=== PATIENT | male | born 1980 | race Caucasian/White ===

== ENCOUNTER 2020-03-08 17:59 | Inpatient (IN) | payer OTHER ==
[~2020-03-08] VITALS: Ht 177.8 cm; Wt 191.6 kg
[2020-03-08 18:29] LABS: PCO2 Arterial 33 mmHg (35-45); PO2 Arterial 201 mmHg (80-100); pH Blood Arterial 7.14 (7.35-7.45)
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
[2020-03-08 21:17] LABS: Hematocrit 42.5 % (37.0-53.0); Hemoglobin 12.5 g/dL (13.5-17.5); Mean Corpuscular HGB 29.6 pg (26.0-34.0); Mean Corpuscular HGB Conc 29.4 g/dL (31.5-36.5); Mean Corpuscular Volume 101 fL (80-100); NRBC ABSOLUTE 0.12 K/mm3 (0.00-0.02); NRBC Auto 0.8 /100 WBC (0.0-0.2); RDW Coefficient Variation 16.4 % (11.7-14.2); RDW Standard Deviation 61.1 fL (35.1-46.3); Red Blood Cell Count 4.22 M/mm3 (4.30-5.90); White Blood Cell Count 15.48 K/mm3 (4.00-11.30)
[2020-03-08 21:28] LABS: Magnesium, Blood 2.9 mg/dL (1.6-2.4)
[2020-03-08 21:29] LABS: International Normalized Ratio 1.49; Prothrombin Time Results 15.6 Sec (9.7-11.5)
[2020-03-08 21:31] LABS: Alanine Aminotransfer (ALT/SGP 35 U/L (12-78); Albumin, Blood 2.5 g/dL (3.4-5.0); Albumin/Globulin Ratio 0.8 (0.8-1.8); Alk Phos 80 U/L (50-136); Anion Gap 20 mmol/L (6-16); Aspartate Aminotrans (AST/SGOT 47 U/L (12-37); Bilirubin, Total 0.7 mg/dL (0.1-1.0); Blood Urea Nitrogen 9 mg/dL (8-24); Bun/Creatinine Ratio 8.7 (12.0-20.0); CO2, Blood 16 mmol/L (21-32); Calcium, Blood 8.7 mg/dL (8.5-10.1); Chloride, Blood 113 mmol/L (98-108); Creatinine, Blood 1.04 mg/dL (0.60-1.20); Glomerular Filtration Rate >60 (60-); Sodium, Blood 149 mmol/L (136-145); Total Protein, Blood 5.5 g/dL (6.4-8.2)
[2020-03-08 21:32] LABS: Glucose, Blood 45 mg/dL (70-99)
[2020-03-08 21:52] LABS: BAND PERCENT MAN 8 % (0-8); BASOPHILS PERCENT MAN 0 % (0-2); EOSINOPHILS ABSOLUTE MAN 0.15 K/mm3 (0.00-0.68); EOSINOPHILS PERCENT MAN 1 % (0-6); LYMPHOCYTES ABSOLUTE MAN 3.87 K/mm3 (0.84-5.20); LYMPHOCYTES PERCENT MAN 25 % (21-46); METAMYELOCYTE ABSOLUTE MAN 0.46 K/mm3 (0.00-0.00); METAMYELOCYTE PERCENT MAN 3 % (0-0); MONOCYTES ABSOLUTE MAN 0.61 K/mm3 (0.16-1.47); MONOCYTES PERCENT MAN 4 % (4-13); MYELOCYTE ABSOLUTE MAN 0.92 K/mm3 (0.00-0.00); MYELOCYTE PERCENT MAN 6 % (0-0); NEUTROPHILS ABSOLUTE MAN 9.44 K/mm3 (1.96-9.15); SEG NEUTROPHILS PERCENT MAN 53 % (41-73); TOTAL CELLS COUNTED 100
[2020-03-08 21:56] LABS: Mean Platelet Volume 10.7 fL (9.1-12.4); Platelet Count 56 K/mm3 (150-400)
[2020-03-08 22:13] LABS: PCO2 Venous 79.6 mmHg (38-42); pH Blood Venous 6.81 (7.34-7.37)
[2020-03-08 22:14] LABS: Base Excess Venous -21.5 mmol/L; PO2 Venous 22.7 mmHg (38-42)
[2020-03-08 22:17] LABS: Influenza A, PCR Negative (NEGATIVE); Influenza B, PCR Negative (NEGATIVE); Resp Syncytial Virus, PCR Negative (NEGATIVE); SARS-Cov-2 (COVID-19) PCR, MMC Negative (NEGATIVE)
[2020-03-08 23:37] LABS: PCO2 Arterial 55.9 mmHg (35-45); PO2 Arterial 49 mmHg (80-100); pH Blood Arterial 6.87 (7.35-7.45)
--- NOTE | 2020-03-09 | NUR ---
SPOKE TO DISPATCH [id number] [facility] CALLED TO PROVIDE PATIENT INFORMATION AND POSSIBILITY OF CONTACTING NEXT OF [facility]. DISPATCH STATED THEY HAVE TWO PHONE NUMBERS AND THEY ARE TRYING TO CONTACT THE PTS FATHER. [facility]ATCH WILL CALL BACK ONCE THEY HAVE CONTACTED THE FAMILY.
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
[2020-03-09 01:25] LABS: PCO2 Arterial 48.7 mmHg (35-45); PO2 Arterial 57.2 mmHg (80-100); pH Blood Arterial 6.83 (7.35-7.45)
--- NOTE | 2020-03-09 01:30 | NUR ---
PT SHAKING HEAD, DOES NOT OPEN EYES TO VERBAL STIMULUS, DOES NOT FOLLOW COMMANDS. DR LYMAN IN TO EVALUATE PT, POSSIBLE SEIZURE ACTIVITY, 4mg ATIVAN ORDERED AND ADMINISTERED.
[2020-03-09 03:45] LABS: Hematocrit 35.5 % (37.0-53.0); Hemoglobin 10.5 g/dL (13.5-17.5); Mean Corpuscular HGB 30.4 pg (26.0-34.0); Mean Corpuscular HGB Conc 29.6 g/dL (31.5-36.5); Mean Corpuscular Volume 103 fL (80-100); Mean Platelet Volume 11.1 fL (9.1-12.4); NRBC ABSOLUTE 0.45 K/mm3 (0.00-0.02); NRBC Auto 1.7 /100 WBC (0.0-0.2); Platelet Count 134 K/mm3 (150-400); RDW Coefficient Variation 17.7 % (11.7-14.2); RDW Standard Deviation 66.2 fL (35.1-46.3); Red Blood Cell Count 3.45 M/mm3 (4.30-5.90); White Blood Cell Count 26.75 K/mm3 (4.00-11.30)
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
--- NOTE | 2020-03-09 04:00 | NUR ---
SHIFT SUMMARY/TOD PT CONTINUES TO BE MAXED OUT ON PRESSORS, LEVO @ 30mcg/min, EPI @ 20mcg/min VASOPRESSIN @ 0.04u/min, SODIUM BICARB 100meq IN 1L D5 @ 150ml/hr. PT CONTINUES TO BE UNRESPONSIVE AND HYPOTENSIVE. PTS HEART RATE BEGAN TO DECREASE @ APPROX 0345, FINAL DISCHARGE INITATED, TIME OF 0358 VERIFIED BY ABSENT PULSES AND UNREADABLE BLOOD PRESSURE PER ARTLINE. DR LYMAN NOTIFIED.
[2020-03-09 04:16] LABS: BAND PERCENT MAN 14 % (0-8); BASOPHILS PERCENT MAN 0 % (0-2); EOSINOPHILS ABSOLUTE MAN 0.26 K/mm3 (0.00-0.68); EOSINOPHILS PERCENT MAN 1 % (0-6); LYMPHOCYTES ABSOLUTE MAN 3.47 K/mm3 (0.84-5.20); LYMPHOCYTES PERCENT MAN 13 % (21-46); METAMYELOCYTE ABSOLUTE MAN 0.26 K/mm3 (0.00-0.00); METAMYELOCYTE PERCENT MAN 1 % (0-0); MONOCYTES ABSOLUTE MAN 0.53 K/mm3 (0.16-1.47); MONOCYTES PERCENT MAN 2 % (4-13); MYELOCYTE PERCENT MAN 3 % (0-0); SEG NEUTROPHILS PERCENT MAN 66 % (41-73); TOTAL CELLS COUNTED 100
[2020-03-09 04:29] LABS: Albumin, Blood 2.4 g/dL (3.4-5.0); Albumin/Globulin Ratio 0.8 (0.8-1.8); Bun/Creatinine Ratio 6.4 (12.0-20.0); Calcium, Blood 7.8 mg/dL (8.5-10.1); Creatinine, Blood 1.88 mg/dL (0.60-1.20); Total Protein, Blood 5.4 g/dL (6.4-8.2)
[2020-03-09 04:42] LABS: Potassium, Blood 6.9 mmol/L (3.5-5.5)
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
== END 2020-03-09 03:58 | DRG 799 ==
LOC: ER 17:59 → ICUE 18:00 → ER 18:49 → ICUE 20:33
PROVIDERS: Emergency Medicine; Internal Medicine Critical Care Medicine; ADMIT Surgery
PROC: 30243N1 Transfusion of Nonautologous Red Blood Cells into Central Vein, Percutaneous Approach (ICD-10-PCS; 2020-03-08)
PROC: 04HL33Z Insertion of Infusion Device into Left Femoral Artery, Percutaneous Approach (ICD-10-PCS; 2020-03-08)
PROC: 06HY33Z Insertion of Infusion Device into Lower Vein, Percutaneous Approach (ICD-10-PCS; 2020-03-08)
PROC: 30243K1 Transfusion of Nonautologous Frozen Plasma into Central Vein, Percutaneous Approach (ICD-10-PCS; 2020-03-08)
PROC: 30243R1 Transfusion of Nonautologous Platelets into Central Vein, Percutaneous Approach (ICD-10-PCS; 2020-03-08)
PROC: 3E043XZ Introduction of Vasopressor into Central Vein, Percutaneous Approach (ICD-10-PCS; 2020-03-08)
PROC: 5A1935Z Respiratory Ventilation, Less than 24 Consecutive Hours (ICD-10-PCS; principal; 2020-03-08 19:00)
PROC: 07TP0ZZ Resection of Spleen, Open Approach (ICD-10-PCS; 2020-03-08 19:00)
DX: S36.032A Major laceration of spleen, initial encounter (principal); J96.01 Acute respiratory failure with hypoxia; E87.2 Acidosis; Z68.43 Body mass index [BMI] 50.0-59.9, adult; V89.2XXA Person injured in unspecified motor-vehicle accident, traffic, initial encounter; I95.9 Hypotension, unspecified; Y92.9 Unspecified place or not applicable; K74.60 Unspecified cirrhosis of liver; R57.8 Other shock; E66.01 Morbid (severe) obesity due to excess calories; Z66 Do not resuscitate
CPT/HCPCS: 0241U; 31720; 36415; 36430; 36600; 36620; 36680; 51702; 71045; 74018; 80053; 82803; 82947; 83605; 83735; 85025; 85384; 85610; 85730; 86850; 86900; 86901; 86923; 88305; 93005; 93010; 94002; 96365-59; 96375-59; 99291-25; C1751; G0390; J0171; J0295; J0610; J1100; J2060; J2370; J2704; J3010; J7040; J7060; J7070; J7120; P9016; P9035; P9059